=== PATIENT | female | born 1995 | race Caucasian/White ===

== ENCOUNTER 2017-01-31 10:08 | Emergency (ER) | payer OTHER ==
[2017-01-31 11:38] VITALS: BP 120/64
== END 2017-01-31 11:38 | disposition home or self-care (01) ==
LOC: ED 10:08
DX: B08.5 Enteroviral vesicular pharyngitis (principal)

== ENCOUNTER 2019-12-08 22:04 | Emergency (ER) | payer OTHER ==
[~2019-12-08] VITALS: Ht 170.2 cm; Wt 76.7 kg
[2019-12-08 22:20] VITALS: BP 150/94; Ht 170.2 cm; Wt 76.7 kg
== END 2019-12-08 23:14 | disposition home or self-care (01) ==
LOC: ED 22:04
DX: N61.0 Mastitis without abscess (principal); Z88.2 Allergy status to sulfonamides